=== PATIENT | female | born 1980 | race Caucasian/White ===

== ENCOUNTER → 2021-11-21 | Day surgery (SDC) | payer OTHER ==
[~2021-11-21] VITALS: Ht 170.2 cm; Wt 74.8 kg
[~2021-11-21] MED LIST: ACETAMINOPHEN500 M1 PO; ALPRAZOLAM 0.0.25 MG PO; BIOTIN1000 MCG PO; COLACE100 MG PO; LOVAZA1 GM PO; MIRALAX17 GM PO; OXY-IR 5MG5 MG PO; VITAMIN D325 MC3 PO
== END | disposition home or self-care (01) ==
LOC: FAS 11:59
DX: K63.5 Polyp of colon (principal); K31.7 Polyp of stomach and duodenum; K29.70 Gastritis, unspecified, without bleeding; K64.2 Third degree hemorrhoids; K64.4 Residual hemorrhoidal skin tags; K58.2 Mixed irritable bowel syndrome; E78.5 Hyperlipidemia, unspecified; F41.9 Anxiety disorder, unspecified; Z87.891 Personal history of nicotine dependence; Z88.8 Allergy status to other drugs, medicaments and biological substances; Z91.018 Allergy to other foods; Z79.899 Other long term (current) drug therapy
CPT/HCPCS: J0690; J1644; J2250; J2405; J2704; J3010; J7120